=== PATIENT | female | born 1975 | race American Indian/Alaskan Native ===

== ENCOUNTER 2020-10-20 09:44 | Day surgery (SDC) | payer MEDICAID ==
--- NOTE | 2020-10-20 09:17 | History and Physical Report ---
History of Present Illness Date of examination: 10/20/20 Chief complaint: menorrhagia, dysfunctional uterine bleeding Past History Past Medical History: hypertension, diabetes Past Surgical History: cholecystectomy Medications and Allergies Allergies Allergy/AdvReac Type Severity Reaction Status Date / Time No Known Allergies Allergy Verified 10/07/20 14:48 Home Medications Medication Instructions Recorded Confirmed Last Taken Type Metformin HCl [Glucophage] 1,000 mg PO BID #60 tablet 12/01/13 10/07/20 12/14/14 Rx yes Losartan 100 mg PO DAILY 10/07/20 10/07/20 Unknown History glipiZIDE 5 mg PO BID 10/07/20 10/07/20 Unknown History Ibuprofen [Ibu-200] 600 mg PO Q6HR PRN #60 tablet 10/20/20 Unknown Rx oxyCODONE /ACETAMINOPHEN [Percocet 1 tab PO Q6HR PRN #20 tablet 10/20/20 Unknown Rx 5/325] Review of Systems All systems: negative (Dysfunctional uterine bleeding and menorrhagia) - Physical Exam Breasts: Positive: deferred Cardiovascular: Regular rate Lungs: Positive: Clear to auscultation Abdomen: Positive: normal appearance, soft, normal bowel sounds Genitourinary (Female): Positive: normal external genitalia, normal perenium Vulva: both: normal Vagina: Positive: normal moisture Uterus: Positive: enlarged Adnexa: both: normal Anus/Rectum: Positive: normal perianal skin Extremities: Positive: normal Deep Tendon Reflex Grade: Normal +2 Results All other labs normal. Assessment and Plan menorrhagia, dysfunctional uterine bleeding NPO, [facility] to OR for procedure plann for hysteroscopy with endometrial ablation Trista Gonzáles MD
[2020-10-20] MEDS ORDERED: LIDOCAINE MPF (2%) 20 MG/1 ML VIAL 5 ML ONE (10:11)
[2020-10-20] MEDS ORDERED: GLYCOPYRROLATE 0.4 MG/2 ML INJ ONE (10:11)
[2020-10-20] MEDS ORDERED: fentaNYL 100 MCG/2 ML INJ ONE (10:11)
[2020-10-20] MEDS ORDERED: ePHEDrine SULFATE 50 MG/1 ML INJ ONE (10:12)
[2020-10-20] MEDS ORDERED: propofoL 200 MG/20 ML VIAL IV ONE ×2 (10:12→11:11)
[2020-10-20] MEDS ORDERED: HYDROmorphone 1 MG/1 ML INJ IV PRN (10:37)
[2020-10-20] MEDS ORDERED: ONDANSETRON 4 MG/2 ML INJ IV PRN (10:37)
--- NOTE | 2020-10-20 10:38 | Anesthesia Day of Surgery ---
Anesthesia Day of Surgery - Day of Surgery Patient Examined: Yes Patient H&P Reviewed: Yes Patient is NPO: Yes
--- NOTE | 2020-10-20 10:39 | Anesthesia Consultation ---
Anesthesia Consult and Med Hx Date of service: 10/20/20 - Airway Anesthetic Teeth Evaluation: Dentures, Edentulous ROM Head & Neck: Adequate Mental/Hyoid Distance: Adequate Mallampati Class: Class II Intubation Access Assessment: Good - Pre-Operative Health Status ASA Pre-Surgery Classification: ASA3 Proposed Anesthetic Plan: General - Pulmonary Hx Sleep Apnea: No - Cardiovascular System Hx Hypertension: Yes (10 YEARS) - Gastrointestinal Hx Gastroesophageal Reflux Disease: No - Endocrine Hx Non-Insulin Dependent Diabetes: Yes - Hematic Hx Sickle Cell Disease: No - Other Systems Hx Obesity: Yes
[2020-10-20] MEDS ORDERED: LACTATED RINGERS 1,000 ML IV SCH (10:45)
[2020-10-20] MEDS ORDERED: MIDAZOLAM 2 MG/2 ML INJ IV NR (11:00)
--- NOTE | 2020-10-20 11:09 | Operative Report ---
Operative Report Operative Report: Preoperative diagnosis: Menorrhagia,dysfunctional uterine bleeding Postoperative diagnosis same Procedure hysteroscopy with endometrial ablation Surgeon Dr. Stacie Gonzáles Assist none Anesthesia GETA Complications none IV fluids 1 L EBL less than 100 mL Urine output 100 mL clear Drains none Findings anteverted uterus 9 weeks size no adnexal masses, hysteroscopy revealed diffuse endometrial tissue with no intracavitary lesions Procedure: Patient was counseled in preop holding about risks benefits possible complications as well as alternatives to the procedure. Informed consent was obtained. She was then taken to the OR where she received excellent general endotracheal anesthesia. She was then placed in the dorsolithotomy position, prepped and draped in a sterile fashion. A timeout was verified. Exam under anesthesia revealed an 8 to 10-week size uterus with bulky consistency and no adnexal masses. Rectovaginal septum is smooth with no appreciable rectal masses. A speculum was placed in the vaginal vault and the cervix visualized. Single- tooth tenaculum was placed on the anterior lip of the cervix and the uterus sounded to 9 cm. The cervix was noted to be dilated to 5 mm. The hysteroscope was then advanced to the uterine fundus and the endometrial cavity hydrodistended to allow for good visualization. There was diffuse endometrial tissue with no intracavitary lesions. The hysteroscope was removed and the NovaSure device inserted appropriately for the ablation. The NovaSure was then inserted into the endometrial cavity and advanced to the fundus. The device was deployed as per the standard of care. The ablation took less than 2 minutes, there were no overrides to the system. At the completion of the procedure at the NovaSure device and the tenaculum and speculum were removed respectively. There were no complications, There was excellent hemostasis. EBL less than 100 mL. Patient's family was notified of her stable condition and any intraoperative findings at the completion of the procedure. Patient was extubated and taken to the PACU in stable condition. All sponge needle instrument counts are correct x2. Trista Gonzáles MD
[2020-10-20] MEDS ORDERED: PHENYLEPHRINE/NS 1,000 MCG/10 ML SYRINGE (OR USE) IV ONE (11:18)
[2020-10-20] MEDS: HYDROmorphone 1 MG/1 ML INJ IV PRN ×2 (12:19→12:29)
[2020-10-20] MEDS ORDERED: .SODIUM CHLORIDE 0.9% IRRIG SOLN 3000 ML IR ONE (12:21)
[2020-10-20] MEDS ORDERED: oxyCODONE /ACETAMINOPHEN 5-325MG TAB ONE (13:05)
--- NOTE | 2020-10-20 13:06 | Post Anesthesia Evaluation ---
- Post Anesthesia Evaluation Patient Participated: Yes Airway Patent: Yes Stable Respiratory Function: Yes Nausea/Vomiting: No Temp > 96.8F: Yes Pain Manageable: Yes Adequeate Hydration: Yes Anesthesia Complications: No Block Receding Appropriately: Not Applicable Patient on Ventilator: No
[2020-10-20 13:37] VITALS: BP 141/82
== END 2020-10-20 14:05 | disposition home or self-care (01) ==
LOC: OR 09:44
PROVIDERS: ATTEND Obstetrics & Gynecology
DX: N92.0 Excessive and frequent menstruation with regular cycle (principal); I10 Essential (primary) hypertension; E11.9 Type 2 diabetes mellitus without complications; E66.9 Obesity, unspecified; F17.210 Nicotine dependence, cigarettes, uncomplicated; Z90.49 Acquired absence of other specified parts of digestive tract; Z98.890 Other specified postprocedural states; Z79.899 Other long term (current) drug therapy; Z79.84 Long term (current) use of oral hypoglycemic drugs; Z68.41 Body mass index [BMI] 40.0-44.9, adult
CPT/HCPCS: 58563; 81025; 82962; A4217; J1170; J2250; J2370; J2704; J3010; J7120